=== PATIENT | male | born 1960 | race Caucasian/White ===

== ENCOUNTER 2025-01-16 16:40 | Inpatient (IN) | payer OTHER ==
[2025-01-16] MEDS ORDERED: ONDANSETRON 4 MG/2 ML VIAL IV PRN (18:30)
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
[2025-01-16 21:26] LABS: Absolute Lymphocytes (CBC) 0.5 K/uL (0.7-4.9); Hematocrit 38.7 % (39.6-49.0); Hemoglobin 13.0 g/dL (13.6-17.9); MCH 26.9 pg (27.0-35.0); MCHC 33.6 g/dL (32.0-36.0); MCV 80.2 fL (80-100); MPV 9.8 fL (7.6-11.3); Nucleated RBC Absolute Count 0.0 (0-0); Nucleated Red Blood Cells % 0.1 % (0-0); RBC Red Blood Cell Count 4.83 M/uL (4.33-5.43); White Blood Count 8.00 thou/uL (4.3-10.9)
[2025-01-16] MEDS: CEFTRIAXONE 1,000 MG in NA CHLORIDE 0.9% 50 ML IVPB SCH (21:26)
[2025-01-16] MEDS: METRONIDAZOLE 500mg IVPB 500 MG/100 ML BAG IV SCH (21:27)
[2025-01-16] MEDS: ALPRAZOLAM 0.5 MG TABLET PO ONE (21:27)
[2025-01-16] MEDS: NA CHLORIDE 0.9% 1,000 ML IV SCH (21:27)
[2025-01-16 21:36] LABS: PT Prothrombin Time 15.9 SECONDS (10-13.0); PTT, Activated Partial Thromb 37.7 SECONDS (27.2-37.4); Protime INR 1.42
[2025-01-16 21:38] VITALS: BMI 35.6
[2025-01-16] MEDS: ACETAMINOPHEN 500 MG TAB PO PRN (21:45)
[2025-01-16 21:48] LABS: ALT/SGPT 59.0 U/L (16-61); AST/SGOT 61.0 U/L (15-37); Albumin 3.1 g/dL (3.4-5.0); Albumin/Globulin Ratio 0.7 (1.1-1.8); Alkaline Phosphatase 169.0 U/L (45-117); Anion Gap 8.9 mEq/L (5.0-15.0); BUN Blood Urea Nitrogen 8.0 mg/dL (7-18); Globulin 4.7 g/dL (2.3-3.5); Glucose Level 144.0 mg/dL (74-106); HDL Cholesterol 31.0 mg/dL (40-60); LDL Cholesterol, Calculated 29.0 mg/dL (<130); LDL Cholesterol,Calc NonReport 29.0; Lipase 64.0 U/L (13-75); Potassium 3.9 mEq/L (3.5-5.1)
--- NOTE | 2025-01-17 09:16 | RAD REPORT ---
EXAM: CT CHEST, ABDOMEN AND PELVIS WITH CONTRAST CLINICAL INDICATION: Male, 64 years old. abd pain w/ possible liver malignancy with mets TECHNIQUE: CT chest, abdomen, and pelvis was performed, following the administration of contrast, as per department protocol. Axial, sagittal and coronal reconstructions were obtained. One or more of the following dose reduction techniques were used: Automated exposure control, adjustment of the mA a nd/or kV according to patient size, and/or iterative reconstruction. Unless otherwise specified, incidental findings do not require dedicated imaging follow-up. COMPARISON: No prior exam. FINDINGS: LUNGS AND AIRWAYS: Numerous bilateral parenchymal pulmonary nodules, the largest on the right are pre dominantly central, including a region of confluent nodularity in the right middle lobe collectively measuring up to 2.4 cm, and the central right lower lobe 1.7 cm nodule. The largest nodu le on the left is lobulated, present in the left lingular segment, measuring 1.8 cm. Although contrast timing is suboptimal for assessment of the pulmonary arteries, there appears to be right sec ond order branch filling defects within branches to the right lower lobe, likely occlusive. Smaller filling defects are present along the left lower lobe third order branches and right upper lobe secon d order branches. PLEURA: No pleural effusion. No pneumothorax. MEDIASTINUM AND LYMPH NODES: No mediastinal mass or fluid collection. Normal size mediastinal, hilar, and axillary lymph nodes. THORACIC AORTA: Normal caliber and configuration. PULMONARY ARTERIES: Normal caliber. OSSEOUS STRUCTURES AND CHEST WALL: Intact. LIVER: Nodular contour with marked relative caudate lobe hypertrophy suggesting cirrhosis. Region of heterogeneous relatively hypoattenuation hepatic dome, as well as a triangular region in the right inferior liver margin, could relate to underlying masses, differential enhancement, or cirrhotic nodu les. There appears to be regional biliary ductal dilation right liver lobe towards the dome, see coronal image 54/113, which may relate to more central obstruction. Main portal vein is patent. Pruni ng of the portal vein branches particularly those directed towards the dome BILIARY SYSTEM: As above. The gallbladder is moderately distended. PANCREAS: No mass, ductal dilation, or krupa-pancreatic fluid. SPLEEN: Enlarged, measuring 15.1 cm in long axis. ADRENALS: Normal; no mass. KIDNEYS AND URETERS: Normal size and contour. No hydronephrosis. URINARY BLADDER: Normal contour. GASTROINTESTINAL TRACT: No bowel obstruction, free air, significant free fluid or abscess. APPENDIX: No inflammatory changes in region of appendix. LYMPH NODES: No lymphadenopathy. ABDOMINAL AORTA AND OTHER VESSELS: Normal caliber aorta and IVC. MUSCULOSKELETAL: No acute or suspicious osseous abnormality. IMPRESSION: Filling defect within the pulmonary arterial branch is most pronounced along the right lower lobe sec ond order branches, concerning for pulmonary emboli. Suboptimal contrast timing limits evaluation. Stigmata of liver cirrhosis acromegaly heterogeneous areas of hypoattenuation near the right hepatic dome and the right lobe inferior margin could relate to subtle mass, differential enhancement, or cirrhotic nodules. Regional intrahepatic biliary ductal prominence in the right hepatic dome periapic al involvement could relate to a more central obstructing mass. Additional evaluation by liver protocol MRI or CT would provide improved assessment. Innumerable pulmonary nodules as above, concerning for metastatic disease. THIS REPORT CONTAINS FINDINGS THAT MAY BE CRITICAL TO PATIENT CARE. The findings were verbally commun icated via telephone to Bridget Lieberman MD on 01/17/2025 9:04 AM.
[2025-01-17] MEDS ORDERED: MORPHINE 4 MG/ML SYR IV ONE (10:56)
[2025-01-17] MEDS: HEPARIN/D5W 25,000 UNIT/500 ML BAG IV SCH (11:25)
[2025-01-17] MEDS: MORPHINE 2 MG/ML SYR IV PRN (13:50)
[2025-01-17] MEDS: LORazepam 2 MG/ML VIAL IV PRN (14:40)
--- NOTE | 2025-01-17 19:09 | RAD REPORT ---
EXAMINATION: MRI ABDOMEN WITHOUT AND WITH CONTRAST CLINICAL INDICATION: Male, 64 years old. liver protocol TECHNIQUE: Multiplanar, multi sequence imaging of the abdomen was performed before and after administ ration of gadolinium-based IV contrast. Unless otherwise specified, incidental findings do not require dedicated imaging follow-up. Unless otherwise specified, incidental findings do not require d edicated imaging follow-up. COMPARISON: CT same day FINDINGS: LIVER: Large irregular enhancing infiltrating mass superior posterior right lobe liver measuring 9.8 x 13.2 cm approximately. There is thrombosis of the anterior right portal vein branches with internal enhancement likely indicating tumor thrombus. There are 2 additional masses seen with irregu lar enhancement inferior most aspect of the right lobe measuring anteriorly 3 cm and posteriorly 4 cm, likely satellite malignancy lesions. Background significant liver cirrhosis. GALLBLADDER: Somewhat distended. BILE DUCTS: No biliary ductal dilatation. SPLEEN: Normal size. No focal lesion. PANCREAS: Normal parenchymal signal. No mass, ductal dilation, or krupa-pancreatic fluid. ADRENALS: Normal; no mass. KIDNEYS: Normal size and contour. No hydronephrosis. LYMPH NODES: No lymphadenopathy. ADDITIONAL FINDINGS: No ascites IMPRESSION: Irregular large infiltrating mass in the liver with background cirrhosis. The mass measures up to 13 cm and is infiltrating into the portal venous system with there is tumor thrombus of right-sided anterior portal vein branch is noted. 2 satellite lesions are also present inferior right lobe. The f indings are most compatible with infiltrating HCC.
[2025-01-17] MEDS: MELATONIN 5 MG TABLET PO SCH (20:05)
[2025-01-18 09:17] LABS: PT Prothrombin Time 16.3 SECONDS (10-13.0); PTT, Activated Partial Thromb 38.3 SECONDS (27.2-37.4); Protime INR 1.46
[2025-01-18 13:09] VITALS: BP 171/83; TEMP 98.1
[2025-01-18] MEDS ORDERED: APIXABAN 5 MG TABLET PO ONE (14:55)
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
--- NOTE | 2025-03-01 12:43 | P.DS ---
Discharge Date: 03/01/25 Disposition: ROUTINE DISCHARGE Discharge Condition: GOOD Reason for Admission: Abdominal pain - Problems (1) Abdominal pain Status: Acute (2) Liver mass Status: Acute (3) Coagulopathy Status: Acute (4) Weight loss Status: Acute Brief History of Present Illness: Patient is a 64-year-old who came to the hospital with abdominal pain. Pain was in the upper quadrant of the right side. Patient's pain radiated to his back region. Patient has had 15 to 20 pound weight loss since the beginning of the year. He is also noticed his clothes do not fit of the same. He has been feeling weak and he does not really feel like he is able to eat as well as he u sed to. He has been followed by his primary care provider, Chino davila, who wanted him admitted to the hospital for further workup. On the floor, patient's hemodynamics are stable. His labs revealed a coagulopathy with an elevated pro time. Patient also has hypoalbuminemia and slightly elevated bilirubin. Patient's alkaline phosphatase is also elevated. Patient will be admitted for further workup of the right upper quadrant abdominal pain. Will get CT imaging to further evaluate. Patient will be admitted for inpatient hospitalization. Hospital Course: Patient diagnosed with hepatocellular carcinoma. Patient did not require biopsy. Outpatient follow-up with hematology oncology. Vital Signs/Physical Exam: Temp Pulse Resp BP Pulse Ox 98.1 F 98 H 17 171/83 H 96 01/30/25 02:02 01/30/25 02:02 01/30/25 02:02 01/30/25 02:02 01/30/25 02:02 General: Alert, In no apparent distress, Oriented x3 Laboratory Data at Discharge: WBC 8.00 thou/uL (4.3-10.9) 01/16/25 21:12 Hgb 13.0 g/dL (13.6-17.9) L 01/16/25 21:12 Hct 38.7 % (39.6-49.0) L 01/16/25 21:12 Plt Count 163 thou/uL (152-406) 01/16/25 21:12 PT 16.3 SECONDS (10-13.0) H 01/18/25 09:00 INR 1.46 01/18/25 09:00 APTT 38.3 SECONDS (27.2-37.4) H 01/18/25 09:00 Sodium 134 mEq/L (136-145) L 01/16/25 21:12 Potassium 3.9 mEq/L (3.5-5.1) 01/16/25 21:12 BUN 8 mg/dL (7-18) 01/16/25 21:12 Creatinine 0.90 mg/dL (0.70-1.30) 01/16/25 21:12 Glucose 144 mg/dL (74-106) H 01/16/25 21:12 Total Bilirubin 1.2 mg/dL (0.2-1.0) H 01/16/25 21:12 AST 61 U/L (15-37) H 01/16/25 21:12 ALT 59 U/L (16-61) 01/16/25 21:12 Alkaline Phosphatase 169 U/L (45-117) H 01/16/25 21:12 Triglycerides 103 mg/dL (<150) 01/16/25 21:12 Cholesterol 81 mg/dL (<200) 01/16/25 21:12 HDL Cholesterol 31 mg/dL (40-60) L 01/16/25 21:12 Cholesterol/HDL Ratio 2.61 01/16/25 21:12 Lipase 64 U/L (13-75) 01/16/25 21:12 Home Medications: Atorvastatin Calcium 40 mg PO DAILY 01/16/25 Buspirone HCl 15 mg PO DAILY 01/16/25 Fenofibrate,Micronized [Fenofibrate] 134 mg PO DAILY 01/16/25 Metformin HCl 1,000 mg PO BID 6AM 6PM 01/16/25 Metoprolol Tartrate 50 mg PO BID 01/16/25 Sitagliptin Phosphate [Januvia] 100 mg PO DAILY 01/16/25 hydroCHLOROthiazide [Hydrochlorothiazide] 25 mg PO DAILY 01/16/25 Apixaban [Eliquis] 5 mg PO BID #60 tablet 01/18/25 Hydrocodone 10/APAP 325 [[place] 10/325] 1 tab PO Q6H PRN #30 tab 01/18/25 Melatonin 10 mg PO BEDTIME #30 tab 01/18/25 Hydrocodone 7.5/APAP 325 [[place] 7.5/325 mg] 1 tab PO Q6H PRN #30 tab 01/26/25 New Medications: Apixaban [Eliquis] 5 mg PO BID #60 tablet Melatonin 10 mg PO BEDTIME #30 tab Hydrocodone 10/APAP 325 [[place] 10/325] 1 tab PO Q6H PRN #30 tab PRN Reason: Pain Hydrocodone 7.5/APAP 325 [[place] 7.5/325 mg] 1 tab PO Q6H PRN #30 tab PRN Reason: Pain Physician Discharge Instructions: -DC IV and DC home -Follow-up with PCP in 1 to 2 weeks -Follow-up with Cardiology in 1 to 2 weeks -Please call Dr. Lieberman at [phone] if any questions regarding hospital stay -Please call nursing station at [phone] if any nursing or medication questions -Return to the emergency room if symptoms worsen Diet: ADA Activity: Fall precautions Followup: Chino Davila FNP [Primary Care Provider] - 1-2 Weeks Time spent managing pt's care (in minutes): 35
== END 2025-01-18 16:19 | disposition home or self-care (01) | DRG 436 ==
LOC: 2ND 16:40
PROVIDERS: ADMIT Hospitalist; ATTEND Hospitalist
DX: C22.0 Liver cell carcinoma (principal); D68.9 Coagulation defect, unspecified; E88.09 Other disorders of plasma-protein metabolism, not elsewhere classified; E11.9 Type 2 diabetes mellitus without complications; E78.5 Hyperlipidemia, unspecified; I10 Essential (primary) hypertension; R63.4 Abnormal weight loss; R16.0 Hepatomegaly, not elsewhere classified; Z68.35 Body mass index [BMI] 35.0-35.9, adult; Z79.84 Long term (current) use of oral hypoglycemic drugs; Z79.899 Other long term (current) drug therapy; Z79.01 Long term (current) use of anticoagulants
CPT/HCPCS: 36415; 47000; 71260; 74177; 74183; 80053; 80061; 80074; 82105; 82140; 83690; 85025; 85610; 85730; A9577; J0696; J1644; J2270; J7030; Q9967